=== PATIENT | female | born 1970 | race Caucasian/White ===

== ENCOUNTER 2017-05-15 10:52 | Emergency (ER) | payer BC ==
[2017-05-15] MEDS: ACETAMINOPHEN 500 MG TAB PO (13:25)
== END 2017-05-15 13:44 | disposition home or self-care (01) ==
LOC: FTE 10:52
DX: R50.9 Fever, unspecified (principal); R51 Headache; R05 Cough; R11.0 Nausea
CPT/HCPCS: 99283